=== PATIENT | male | born 1965 | race Two or more races ===

== ENCOUNTER 2018-11-29 13:50 | Emergency (ER) | payer BC ==
[~2018-11-29] VITALS: Ht 177.8 cm; Wt 77.1 kg
--- NOTE | 2018-11-29 14:10 | NUR ---
PT AMBULATED TO ER BED 07
[2018-11-29 14:13] VITALS: BP 124/104
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
[2018-11-29] MEDS ORDERED: SILVER SULFADIAZINE 1% 50 GM JAR TP ONE ×2 (14:55→15:40)
[2018-11-29] MEDS ORDERED: hydrOXYzine HCL 25 MG TAB PO ONE (14:55)
[2018-11-29] MEDS ORDERED: traMADol 50 MG TAB PO ONE (15:15)
[2018-11-29] MEDS ORDERED: traMADol 50 MG TAB ONE (15:39)
[2018-11-29 16:15] VITALS: BP 127/75
--- NOTE | 2018-11-29 16:15 | NUR ---
Patient discharged with v/s stable. Written and verbal after care instructions given and explained. Patient alert, oriented and verbalized understanding of instructions. Ambulatory with steady gait. All questions addressed prior to discharge. ID band removed. Patient advised to follow up with PMD. Rx of AUGMENTIN, Atarax, Silvadene, Tramadol given. Patient educated on indication of medication including possible reaction and side effects. Opportunity to ask questions provided and answered.
== END 2018-11-29 16:15 | disposition home or self-care (01) ==
LOC: MED 13:50
DX: T22.211A Burn of second degree of right forearm, initial encounter (principal); J32.9 Chronic sinusitis, unspecified; J02.9 Acute pharyngitis, unspecified; X13.1XXA Other contact with steam and other hot vapors, initial encounter; Y93.G3 Activity, cooking and baking; Y92.89 Other specified places as the place of occurrence of the external cause; Y99.8 Other external cause status
CPT/HCPCS: 16020; 90471; 90715; 99284